=== PATIENT | male | born 1980 | race Caucasian/White ===

== ENCOUNTER 2020-07-04 10:40 | Outpatient (REF) | payer SELFPAY | END 2020-07-04 10:41 | disposition home or self-care (01) | LOC: HO.LAB 10:40 | PROVIDERS: Visit Provider Internal Medicine | DX: Z20.828 Contact with and (suspected) exposure to other viral communicable diseases (principal) | CPT/HCPCS: C9803; U0003 ==

== ENCOUNTER 2021-04-21 15:49 | Emergency (ER) | payer OTHER, SELFPAY ==
--- NOTE | ~2021-04-21 | CT_ITS ---
EXAMINATION: CT ANKLE WITH CONTRAST, LEFT CLINICAL INFORMATION: Fluctuant area near hardware. Draining. Evaluate for underlying abscess. COMPARISON: Left ankle radiographs dated 05/19/2018. TECHNIQUE: Contiguous axial CT images of the left ankle were obtained following the administration of 85 mL of Omnipaque 350 IV contrast. Multiplanar reformats were provided and reviewed. This CT examination was performed using dose optimization techniques as appropriate, variously including the following: *Automated exposure control. *Adjustment of mA and/or kV according to patient size (this includes techniques or standardized protocols for targeted exams where dose is matched to indication/reason for exam; i.e. extremities or head). *Use of iterative reconstruction technique. DOSE: 183 mGy-cm FINDINGS: Redemonstration of a distal tibial ORIF with medial fixation screws. The inferior most screw is again noted to be slightly elevated from a cortex measuring up to 0.7 cm, not significantly changed. There is minimal lucency adjacent to the ORIF measuring 0.1-0.2 cm. Findings may represent the postsurgical result. Early infection or loosening cannot be entirely excluded. Adjacent to the head of the superior screw, there is soft tissue fluid density measuring up to 1.3 cm in craniocaudal dimension. No peripheral enhancement. Findings could represent phlegmonous change versus a small abscess in the appropriate clinical setting. Evaluation is limited due to metallic streak artifact. No acute fracture or dislocation. The visualized flexor and extensor tendons are intact. The visualized vascular structures enhance normally. No enhancing soft tissue mass or fluid collection. CT/CT ankle LT w con IMPRESSION: 1. Distal tibial ORIF without hardware fracture. Minimal lucency surrounding the hardware, which may represent the postsurgical result. An early infection or loosening cannot be entirely excluded. 2. Adjacent to the head of the more proximal screw there is soft tissue/fluid density measuring up to 1.3 cm. No associated enhancement. Findings could represent phlegmonous change versus a small abscess in the appropriate clinical setting. Evaluation is limited due to metallic streak artifact. Soft tissue ultrasound could help further evaluate, if clinically indicated.
[2021-04-21 15:57] VITALS: BP 142/88; PULSE 119; RESP 16; TEMP 35.9; O2SAT 96; BMI 22.1
[2021-04-21 17:02] VITALS: BP 109/71; PULSE 79; RESP 16; TEMP 36.6; O2SAT 96
[2021-04-21 17:04] LABS: Basophils Percent Auto 1.6 % (0-2); Eosinophils Percent Auto 1.2 % (0-4); Hematocrit 39.1 % (42-52); Hemoglobin 12.9 g/dl (14.0-18.0); Lymphocytes Percent Auto 41.2 % (20-40); MANUAL DIFF FLAG SCAN; Mean Corpuscular Hemoglobin 32.4 pg (27.0-33.0); Mean Corpuscular Volume 98.2 fL (80-98); Mean Platelet Volume 8.7 fL (9.4-12.4); Monocytes Absolute Auto 0.3 X10*3/uL (0.1-1.2); Monocytes Percent Auto 10.6 % (2-11); Neutrophils Absolute Auto 1.1 X10*3/uL (2.0-8.3); Neutrophils Percent Auto 45.4 % (45-73); Platelet Count 272 X10*3/uL (160-400); Red Blood Count 3.98 X10*6/uL (4.60-5.80); Red Cell Distribution Width 11.1 % (11.0-16.0); SCAN SMEAR FLAG 1
[2021-04-21 17:06] LABS: White Blood Count 2.5 X10*3/uL (4.8-10.8)
[2021-04-21 17:22] LABS: SLIDE REVIEW VERIFIED
[2021-04-21 17:40] LABS: Anion Gap 13 (12-20); Blood Urea Nitrogen 12 mg/dL (9-16); C Reactive Protein 0.16 mg/dL (< or = 0.50); Calcium 9.4 mg/dL (8.4-10.2); Carbon Dioxide 31 mmol/L (22-29); Chloride 100 mmol/L (96-108); Creatinine Clr Calc Pharmacy 104.8; Estimated Glomerular Filt Rate > 60; Glucose Random 100 mg/dL (60-115); Lactic Acid 3.1 mmol/L (0.5-2.0); Potassium 4.1 mmol/L (3.3-5.1); Sodium 140 mmol/L (135-145)
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
[2021-04-21 17:50] LABS: Erythrocyte Sedimentation Rate 2 MM/HR (0-15)
[2021-04-21] MEDS: 0.9 % Sodium Chloride 1,000 ML 999 ML IVCONT ×2 (17:51→19:37)
[2021-04-21] MEDS: cefEPime HCl 2 GM in 0.9 % Sodium Chloride 50 ML IV (18:26)
[2021-04-21 19:00] LABS: Reflex Lactate? Lactic Acid Added
--- NOTE | 2021-04-21 20:00 | PM.EVENT ---
Event Note Date of Service: 04/22/21 Event Note: Patient was seen and evaluated at bedside in the ED with Dr. Solis and myself. No need for admission at this time due to chronic left ankle drainage and infection. Patient may be treated in the outpatient setting. Patient understands and accepts.
[2021-04-21 21:01] LABS: ~Lactic Acid-LAB USE ONLY 0.5 mmol/L (0.5-2.0)
[2021-04-21 21:54] VITALS: BP 125/77; PULSE 55; RESP 16; TEMP 36.5; O2SAT 97
[2021-04-21 22:14] LABS: COVID-19 Test Negative (Negative); IDNOW Serial# 9DD0AD1C
--- NOTE | 2021-04-22 00:39 | PC.NURSE ---
DR SOSA CAME TO BEDSIDE TO ASSESS THE PT AND WILL SEE HIM AT BEDSIDE ON THURSDAYS.
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
== END 2021-04-21 23:22 | disposition home or self-care (01) ==
PROVIDERS: Physician Assistant; Emergency Provider Emergency Medicine Emergency Medical Services
DX: T85.698A Other mechanical complication of other specified internal prosthetic devices, implants and grafts, initial encounter (principal); Z20.822 Contact with and (suspected) exposure to COVID-19; Y99.9 Unspecified external cause status
CPT/HCPCS: 36415; 73701; 80048; 83605; 85025; 85652; 86140; 87040; 87635; 96361; 96374; 99284; J0692

== ENCOUNTER → 2021-04-26 09:01 | Outpatient (BNVA) | payer OTHER, SELFPAY | PROVIDERS: Visit Provider Physician Assistant | DX: T84.7XXA Infection and inflammatory reaction due to other internal orthopedic prosthetic devices, implants and grafts, initial encounter (principal) | CPT/HCPCS: 99202 ==

== ENCOUNTER 2021-05-09 09:08 | Day surgery (SDC) | payer OTHER, SELFPAY ==
--- NOTE | 2021-05-08 08:23 | P.CONAN_ITS ---
HPI - Anesthesia Eval Consult details Narrative: 41yo M for Left Distal Tibia Removal Orthopedic Hardware PMFSH Active Problems Active Problems: All Active Problems (Updated 04/26/21 @ 10:02 by Marietta Monaco PA-C) Infected hardware in left lower extremity (Acute) Past Medical History Medical History Iron (Fe) deficiency anemia Surgical History Surgical History History of orthopedic surgery Social History Social History (Updated 04/26/21 @ 09:10 by Lety Macario CMA) Patient Tobacco Use Status: Never used Tobacco Current occupational status: employed Current occupation: [employer] Allergies Allergy/AdvReac Type Severity Reaction Status Date / Time No Known Allergies Allergy Verified 04/26/21 09:07 [No Known Allergies*] Exam Exam Date and Time: May 08, [id number] Pertinent Lab Results Pertinent Lab Results: Laboratory Tests 04/21/21 04/21/21 16:55 16:55 WBC 2.5 L Hgb 12.9 L Hct 39.1 L Plt Count 272 Sodium 140 Potassium 4.1 Chloride 100 Carbon Dioxide 31 H BUN 12 Creatinine 0.91 Assessment and Plan Assessment Anesthesia Assessment: Chart Reviewed
--- NOTE | 2021-05-09 08:43 | MHC.SHP ---
Pre-Procedural Eval Section A Date of Service: 05/09/21 The patient is an INPATIENT: No Changes since office visit: Yes Patient answered all questions; No Cold of Flu in the past 2 weeks, No New Medical Problems and No Changes in Medication The History & Physical has been completed within 30 days and I have reviewed it.: Yes Section B Chief Complaint: Infection and inflammatory reaction due to other.. Allergies: Allergies Allergy/AdvReac Type Severity Reaction Status Date / Time No Known Allergies Allergy Verified 04/26/21 09:07 [No Known Allergies*] Plan I have reviewed the history and physical and performed a pertinent physical examination on my patient. No changes have occurred unless specified.
[2021-05-09 09:13] VITALS: BMI 22.8
[2021-05-09 09:19] VITALS: BP 127/78; PULSE 63; RESP 16; TEMP 36.7; O2SAT 95
[2021-05-09] MEDS: Lactated Ringers 1,000 ML 100 ML IVCONT (09:39)
[2021-05-09 11:26] VITALS: BP 99/57; PULSE 53; RESP 14; TEMP 36.2; O2SAT 97
--- NOTE | 2021-05-09 11:27 | PM.OP ---
Brief Operative Note Date of Service: 05/09/21 Pre-op diagnosis: retained ortho hardware left tibia Post-op diagnosis: same Procedure: removal of hardware left tibia Implants: none Surgeon: German Solis MD Anesthesia: MAC and local Was an Sheet Metal Layout Worker used for this Procedure?: No Estimated blood loss (mL): 15 IV fluids (mL): 500 Pathology: other Condition: stable Disposition: PACU
--- NOTE | 2021-05-09 11:30 | P.OP_ITS ---
Operative Note Operative Note Date of Service: 05/09/21 Narrative: Pre-op diagnosis: retained ortho hardware left tibia Post-op diagnosis: same Procedure: removal of hardware left tibia Implants: none Surgeon: German Solis MD Anesthesia: MAC and local Was an Glass Cutter Hand used for this Procedure?: No Estimated blood loss (mL): 15 IV fluids (mL): 500 Pathology: other Condition: stable Disposition: PACU Procedure in detail: Patient was brought to the operating room and placed supine on the surgical table. He was prepped and draped in standard sterile fashion and a time out was called to identify proper site, proper procedure and IV antibiotics per weight were administered. I began by insufflating the tourniquet to 300 mm Hg. I began by making a 1 cm incision over the proximal on the distal 2 screwheads through the area of chronic eschar and occasional discharge. There was no deep fluid or suspicious necrotic material. The screw was removed without difficulty. I cultured the screw hole. I repeated this for the distal screw. I did not culture this screw hole.I then irrigated copiously and closed with matress nylon. Incisions were then covered in sterile dressing. I injected about 20 ml of 0.5 marcaine prior to dressing placement. Patient was then awakened from sedation and brought to the recovery room ins stable condition. There were no known complications.
[2021-05-09 11:41] VITALS: BP 97/64; PULSE 63; RESP 14; O2SAT 97
[2021-05-09] MEDS: oxyCODONE HCl Immed Release 5 MG TABLET PO (12:07)
[2021-05-09] MEDS: Acetaminophen 325 MG TABLET 650 MG PO (12:07)
[2021-05-09 12:08] VITALS: BP 103/67; PULSE 70; RESP 16; O2SAT 100
== END 2021-05-09 13:33 | disposition home or self-care (01) ==
PROVIDERS: Visit Provider Orthopaedic Surgery
PROC: (CPT 20680; principal; 2021-05-09 10:40)
DX: T84.623A Infection and inflammatory reaction due to internal fixation device of left tibia, initial encounter (principal); S91.002A Unspecified open wound, left ankle, initial encounter; Y08.02XA Assault by strike by baseball bat, initial encounter; B99.9 Unspecified infectious disease; D50.9 Iron deficiency anemia, unspecified
CPT/HCPCS: 20680; 87071; 87077; 87186; 87205; J0690; J2250; J2405; J3010

== ENCOUNTER → 2021-05-21 12:43 | Outpatient (BNVA) | payer OTHER, SELFPAY | PROVIDERS: Visit Provider Physician Assistant | DX: T84.7XXD Infection and inflammatory reaction due to other internal orthopedic prosthetic devices, implants and grafts, subsequent encounter (principal) | CPT/HCPCS: 99212 ==

== ENCOUNTER → 2021-05-24 09:22 | Outpatient (BNVA) | payer OTHER, SELFPAY | PROVIDERS: Visit Provider Physician Assistant | DX: T84.7XXD Infection and inflammatory reaction due to other internal orthopedic prosthetic devices, implants and grafts, subsequent encounter (principal) | CPT/HCPCS: 99212 ==

== ENCOUNTER → 2021-06-22 10:58 | Outpatient (BNVA) | payer OTHER, SELFPAY | PROVIDERS: Visit Provider Physician Assistant | DX: T84.7XXD Infection and inflammatory reaction due to other internal orthopedic prosthetic devices, implants and grafts, subsequent encounter (principal) | CPT/HCPCS: 99212 ==